=== PATIENT | male | born 1940 | race Caucasian/White ===

== ENCOUNTER 2018-11-05 11:56 | Observation (INO) ==
[2018-11-05] MEDS ORDERED: SALINE LOCK IV FLUID XX ONE ×2 (17:45→17:51)
[2018-11-05 19:35] LABS: BASO# 0.05 X1000 (0.0-0.2); BASO% 0.8 % (0.0-0.8); EOS# 0.04 X1000 (0.0-0.7); EOS% 0.7 % (0.0-10.0); HEMATOCRIT 39.8 % (42.0-52.0); HEMOGLOBIN 13.3 g/dL (14.0-18.0); LYMPH# 1.12 X1000 (1.2-3.4); LYMPH% 18.9 % (20.5-51.1); MCH 30.9 PG (27-31); MCHC 33.4 g/dL (33-37); MCV 92.3 FL (81-99); MONO% 11.8 % (1.7-9.3); MPV 13.2 FL (7.4-10.4); NEUT# 4.01 X1000 (1.4-6.5); NEUT% 67.8 % (42.2-75.2); PLT 73 X1000 (130-400); RBC 4.31 XMIL (4.7-6.1); RDW 15.4 % (11.5-14.5); WBC 5.92 X1000 (4.8-10.8)
[2018-11-05] MEDS: LASIX IV SCH (20:13)
[2018-11-05] MEDS: KLOR-CON PO SCH (20:13)
[2018-11-06 06:21] LABS: AGAP 12; BUN 7 mg/dL (8-22); CALCIUM 8.7 mg/dL (8.8-10.2); CHLORIDE 102 mmol/L (98-107); COSMO 284; CREATININE 0.8 mg/dL (0.7-1.2); ESTIMATED GFR > 60; GLUCOSE 79 mg/dL (70-104); MAGNESIUM 1.7 mg/dL (1.5-2.7); POTASSIUM 3.4 mmol/L (3.5-5.1); SODIUM 144 mmol/L (136-145); TCO2 30 mmol/L (25-35)
[2018-11-06] MEDS: KLOR-CON PO SCH ×2 (08:58→20:18)
[2018-11-06] MEDS: TOPROL XL PO SCH (08:58)
[2018-11-06] MEDS: LASIX IV SCH ×2 (08:58→20:18)
[2018-11-06] MEDS: ASPIRIN PO SCH (08:58)
[2018-11-06] MEDS ORDERED: ASPIRIN PO SCH (09:00)
[2018-11-06] MEDS ORDERED: TOPROL XL PO SCH (09:00)
[2018-11-06] MEDS ORDERED: KLOR-CON PO SCH (09:00)
--- NOTE | 2018-11-06 13:21 | EKG Report ---
Test Performed on : 11/06/2018 1:00:19 PM Test Reason : dyspnea Blood Pressure : / mmHG Vent. Rate : 067 BPM Atrial Rate : 067 BPM P-R Int : 166 ms QRS Dur : 080 ms QT Int : 424 ms P-R-T Axes : 050 013 215 degrees QTc Int : 448 ms Normal sinus rhythm. Left ventricular hypertrophy with repolarization abnormality Abnormal ECG When compared with ECG of 04-NOV-2018 20:46, (Unconfirmed) premature ventricular complexes. are no longer present T wave inversion now evident in Inferior leads Confirmed by Fawad BELTRAN, Jose Morrison ([id number]) on 11/07/2018 9:05:16 AM
[2018-11-06] MEDS: LOVENOX SUBQ SCH (15:20)
--- NOTE | 2018-11-06 18:24 | PROGRESS NOTE ---
DATE: 11/06/2018 SUBJECTIVE: Patient continues without shortness of breath on supplemental oxygen per nasal cannula. However, he does have a tendency for orthopnea persisting. There has been no chest pain. OBJECTIVE: Vital Signs: Blood pressure 110/60, heart rate 55, oxygen saturation 100% on nasal cannula oxygen at 2 L/minute. Neck: Jugular venous distention suggests central venous pressure around 8 to 10. Chest: Auscultation of the chest reveals bibasilar diminished breath sounds. Cardiac Exam: Reveals a regular rate and rhythm without appreciable murmur or gallop. Extremities: Demonstrate moderate pretibial edema. LABORATORY DATA: Includes a sodium 144, potassium 3.4, chloride 102, carbon dioxide 30, BUN 7, creatinine 0.8. TSH 4.95. Magnesium 1.7, glucose 79. IMPRESSION: 1. Acute on chronic systolic heart failure which is biventricular in nature. 2. Severe cardiomyopathy. 3. 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 RECOMMENDATIONS: 1. Continue diuresis with intravenous Lasix. 2. Continue metoprolol. 3. Consider low-dose ARB versus and Entresto as patient progressively improves. 4. Ultimately would hopefully favor pursuing cardiac catheterization and selective cord angiography for definitive evaluation of patient's cardiomyopathy. cc: Franck Rothman MD
[2018-11-07 06:47] LABS: CREATININE 1.2 mg/dL (0.7-1.2); POTASSIUM 3.9 mmol/L (3.5-5.1)
[2018-11-07 06:48] LABS: CALCIUM 8.5 mg/dL (8.8-10.2); MAGNESIUM 1.7 mg/dL (1.5-2.7)
--- NOTE | 2018-11-07 08:45 | Diag Imaging Result Doc PS360 ---
EXAM: CHEST-PORTABLE INDICATION: dyspnea TECHNIQUE: One view COMPARISON: 11/04/2018 FINDINGS: The left chest port is in stable position. Bibasilar pleural effusions are approximately stable as compared to the previous study. There is stable mild adjacent atelectasis and/or infiltrate. No new consolidation is identified. Cardiac silhouette is stable. IMPRESSION: Essentially stable chest. Electronically signed by Santosh Silver 11/07/2018 8:43 AM
[2018-11-07] MEDS: ASPIRIN PO SCH (09:08)
[2018-11-07] MEDS: TOPROL XL PO SCH (09:08)
[2018-11-07] MEDS: LASIX IV SCH ×2 (09:08→21:13)
[2018-11-07] MEDS: KLOR-CON PO SCH ×2 (09:08→21:13)
[2018-11-07] MEDS: LOVENOX SUBQ SCH (13:17)
[2018-11-08] MEDS: KLOR-CON PO SCH ×2 (09:57→20:28)
[2018-11-08] MEDS: TOPROL XL PO SCH ×2 (09:57→20:28)
[2018-11-08] MEDS: LASIX IV SCH (09:58)
[2018-11-08] MEDS: ASPIRIN PO SCH (09:58)
[2018-11-08] MEDS ORDERED: COZAAR PO ONE (11:50)
[2018-11-08] MEDS ORDERED: ZOFRAN IV PRN (12:05)
[2018-11-08] MEDS ORDERED: TYLENOL PO PRN (12:05)
[2018-11-08] MEDS: COZAAR PO SCH (12:50)
[2018-11-08] MEDS: LOVENOX SUBQ SCH (12:50)
[2018-11-08] MEDS: DUONEB (A & A) INH SCH ×2 (15:48→19:19)
[2018-11-08] MEDS: PULMICORT INH SCH (19:19)
[2018-11-09] MEDS: DUONEB (A & A) INH SCH ×6 (02:07→22:59)
[2018-11-09 06:21] LABS: BASO# 0.06 X1000 (0.0-0.2); BASO% 1.1 % (0.0-0.8); EOS# 0.13 X1000 (0.0-0.7); EOS% 2.4 % (0.0-10.0); HEMATOCRIT 39.3 % (42.0-52.0); HEMOGLOBIN 13.1 g/dL (14.0-18.0); LYMPH# 1.04 X1000 (1.2-3.4); LYMPH% 19.4 % (20.5-51.1); MCH 30.7 PG (27-31); MCHC 33.3 g/dL (33-37); MONO# 0.85 X1000 (0.11-0.59); MONO% 15.8 % (1.7-9.3); MPV 11.9 FL (7.4-10.4); NEUT# 3.29 X1000 (1.4-6.5); NEUT% 61.3 % (42.2-75.2); PLT 95 X1000 (130-400); RBC 4.27 XMIL (4.7-6.1); RDW 14.7 % (11.5-14.5); WBC 5.37 X1000 (4.8-10.8)
[2018-11-09 06:26] LABS: INR 1.01; PROTIME 13.4 Seconds (11.0-16.0)
[2018-11-09 06:27] LABS: PTT 32.4 Seconds (22.3-41.8)
[2018-11-09 06:43] LABS: AGAP 11; BUN 19 mg/dL (8-22); CALCIUM 8.1 mg/dL (8.8-10.2); CHLORIDE 104 mmol/L (98-107); COSMO 288; CREATININE 1.1 mg/dL (0.7-1.2); ESTIMATED GFR > 60; GLUCOSE 85 mg/dL (70-104); MAGNESIUM 1.8 mg/dL (1.5-2.7); POTASSIUM 3.6 mmol/L (3.5-5.1); SODIUM 144 mmol/L (136-145); TCO2 29 mmol/L (25-35)
--- NOTE | 2018-11-09 07:38 | EKG Report ---
Test Performed on : 11/09/2018 06:51:31 AM Test Reason : chest pain Blood Pressure : / mmHG Vent. Rate : 061 BPM Atrial Rate : 061 BPM P-R Int : 140 ms QRS Dur : 084 ms QT Int : 452 ms P-R-T Axes : 023 007 228 degrees QTc Int : 455 ms Normal sinus rhythm. Left ventricular hypertrophy with repolarization abnormality Abnormal ECG When compared with ECG of 06-NOV-2018 13:00, No significant change was found Confirmed by Fawad BELTRAN, Jose Morrison ([id number]) on 11/11/2018 9:36:00 PM
[2018-11-09 07:42] LABS: FREE T4 1.06 ng/dL (0.93-1.70); TSH 4.85 uIUmL (0.27-4.20)
[2018-11-09] MEDS: PULMICORT INH SCH ×2 (07:45→19:44)
[2018-11-09] MEDS: LASIX PO SCH (08:56)
[2018-11-09] MEDS: KLOR-CON PO SCH ×2 (08:56→21:23)
[2018-11-09] MEDS: TOPROL XL PO SCH ×2 (08:56→21:23)
[2018-11-09] MEDS: COZAAR PO SCH (08:56)
[2018-11-09] MEDS: PRILOSEC PO SCH (08:56)
[2018-11-09] MEDS: ASPIRIN PO SCH (08:56)
[2018-11-09] MEDS ORDERED: COZAAR PO SCH (09:00)
--- NOTE | 2018-11-09 10:25 | Diag Imaging Result Doc PS360 ---
EXAM: CHEST-2 VIEWS HISTORY: hypoxia TECHNIQUE: Chest two views COMPARISON: 11/07/2018 FINDINGS: Decreased basilar atelectasis. The heart is not enlarged. The vessels are not distended. There are no infiltrates. Tiny pleural effusions. No change in the left portacatheter. IMPRESSION: Interval improvement. Electronically signed by Salvador Robbins 11/09/2018 10:23 AM
--- NOTE | 2018-11-09 11:23 | EKG Report ---
Test Performed on : 11/09/2018 11:05:18 AM Test Reason : dyspnea Blood Pressure : / mmHG Vent. Rate : 063 BPM Atrial Rate : 063 BPM P-R Int : 174 ms QRS Dur : 092 ms QT Int : 430 ms P-R-T Axes : 045 000 184 degrees QTc Int : 440 ms Normal sinus rhythm. Left ventricular hypertrophy with repolarization abnormality Abnormal ECG When compared with ECG of 09-NOV-2018 06:51, (Unconfirmed) No significant change was found Confirmed by Fawad BELTRAN, Jose Morrison ([id number]) on 11/11/2018 9:45:50 PM
[2018-11-09] MEDS: LOVENOX SUBQ SCH (13:30)
--- NOTE | 2018-11-09 16:57 | PROGRESS NOTE ---
DATE: 11/09/2018 SUBJECTIVE: Patient is feeling good today. He understands he is going to undergo a left heart catheterization tomorrow. His breathing is comfortable. His family seems to think he looks and feels better. OBJECTIVE: Vital signs: Temperature 97.8 degrees, pulse 62, respirations 15, blood pressure 102/56. HEENT: Pupils are equal and round. Lungs: Clear in all lung infante. Cardiovascular: Regular rhythm and rate without murmur or S3. Abdomen: Soft, nondistended. No pedal edema. LABORATORY DATA: Review of lab from yesterday, white count 5,370, hematocrit 39, platelet count 95,000. Sodium 144, potassium 3.6, chloride 104, bicarb 29, BUN 19, creatinine 1.1, magnesium is 1.8. His B12 was 797. His folate was 485. T4 1.6, TSH 4.85. Chest x-ray from yesterday, interval improvement, decreased basilar atelectasis. Heart is not enlarged. Vessels were not distended. No sign of infiltrates. There are tiny pleural effusion. No change in left Port-A- Cath placement. ASSESSMENT AND PLAN: 1. Acute on chronic congestive heart failure and known to have severe cardiomyopathy. Some exacerbation with volume overload. Continue to diurese. Responding well, clinically better. 2. Mantle cell lymphoma. Treated with chemotherapy. 3. Hypertension, well controlled. Plan is for heart catheterization tomorrow to look at his coronaries. I do not see any change in orders. cc: Ozzie Cruz MD
[2018-11-10 05:56] LABS: HEMATOCRIT 38.1 % (42.0-52.0); HEMOGLOBIN 12.8 g/dL (14.0-18.0); MCH 31.4 PG (27-31); MCHC 33.6 g/dL (33-37); MCV 93.6 FL (81-99); MPV 12.3 FL (7.4-10.4); RBC 4.07 XMIL (4.7-6.1)
[2018-11-10 06:21] LABS: AGAP 13; BUN 19 mg/dL (8-22); CALCIUM 8.2 mg/dL (8.8-10.2); CHLORIDE 106 mmol/L (98-107); COSMO 288; ESTIMATED GFR > 60; GLUCOSE 84 mg/dL (70-104); SODIUM 144 mmol/L (136-145); TCO2 25 mmol/L (25-35)
[2018-11-10 07:18] LABS: INR 0.99; PROTIME 13.1 Seconds (11.0-16.0)
[2018-11-10] MEDS: COZAAR PO SCH (08:21)
[2018-11-10] MEDS: TOPROL XL PO SCH ×2 (08:21→20:39)
[2018-11-10] MEDS: KLOR-CON PO SCH ×2 (08:21→20:37)
[2018-11-10] MEDS: PRILOSEC PO SCH (08:21)
[2018-11-10] MEDS: ASPIRIN PO SCH (08:21)
[2018-11-10] MEDS: DUONEB (A & A) INH SCH ×5 (08:28→23:48)
[2018-11-10] MEDS: PULMICORT INH SCH ×2 (08:28→19:28)
[2018-11-10 08:43] LABS: URINE SOURCE CLEAN CATCH
[2018-11-10 09:09] LABS: BILIRUBIN URINE NEGATIVE (NEGATIVE); BLOOD URINE NEGATIVE (NEGATIVE); COLOR YELLOW; GLUCOSE URINE NEGATIVE (NEGATIVE); KETONE URINE NEGATIVE (NEGATIVE); LEUKOCYTES URINE NEGATIVE (NEGATIVE); NITRITE URINE NEGATIVE (NEGATIVE); PH URINE 7.5; PROTEIN URINE NEGATIVE (NEGATIVE); SP GRAVITY URINE 1.016; TURBIDITY URINE CLEAR (CLEAR); UROBILINOGEN URINE NORMAL (NORMAL)
[2018-11-10 09:10] LABS: UR EPITHELIAL CELLS <10 /HPF (<10); URINE BACTERIA NEGATIVE /HPF; URINE RBC <10 /HPF (<10); URINE WBC <10 /HPF (<10)
[2018-11-10] MEDS ORDERED: VERSED ONE (09:58)
[2018-11-10] MEDS ORDERED: MORPHINE ONE (09:58)
[2018-11-10] MEDS ORDERED: HEPARIN 1000 UNITS/NS 2,000 UNIT/1,000 ML IV.SOLN ONE (09:58)
[2018-11-10] MEDS ORDERED: XYLOCAINE 1% ONE (10:05)
[2018-11-10] MEDS ORDERED: ANESTHESIA PB SET 88 IN 5742 ONE (10:27)
[2018-11-10] MEDS ORDERED: NS 1,000 ML ONE (10:27)
[2018-11-10] MEDS ORDERED: CLAVE TWINSITE 32 IN 11959 ONE (10:27)
[2018-11-10] MEDS ORDERED: NS 1,000 ML IV SCH (13:00)
--- NOTE | 2018-11-10 13:33 | EKG Report ---
Test Performed on : 11/10/2018 12:49:41 PM Test Reason : post cath Blood Pressure : / mmHG Vent. Rate : 067 BPM Atrial Rate : 067 BPM P-R Int : 170 ms QRS Dur : 084 ms QT Int : 390 ms P-R-T Axes : 046 030 215 degrees QTc Int : 412 ms Normal sinus rhythm. T wave abnormality, consider inferior ischemia T wave abnormality, consider anterolateral ischemia Abnormal ECG When compared with ECG of 09-NOV-2018 11:05, (Unconfirmed) No significant change was found Confirmed by Fawad BELTRAN, Jose Morrison ([id number]) on 11/11/2018 10:13:11 PM
--- NOTE | 2018-11-10 16:07 | CARDIAC CATH REPORT ---
PROCEDURE NAME: - PROCEDURE PERFORMED: Left heart catheterization with selective coronary geography, left ventriculography. INDICATIONS: Further evaluation of severe cardiomyopathy with entry site right femoral artery. CATHETERS USED: 5-Serbian JL4, 3DRC, and angled pigtail. TECHNIQUE: After intravenous sedation with Versed and morphine, local anesthesia with lidocaine was applied over right femoral artery. Arterial access was established with placement of a 5- Serbian sheath in right femoral artery using modified Seldinger technique. Selective coronary angiography was performed followed by left heart catheterization left ventriculography. Upon completion of procedure, arterial sheath was removed from right femoral artery and hemostasis facilitated with manual pressure. The patient tolerated the procedure without apparent complications. FINDINGS: Hemodynamics: Aortic pressure 112/62 with a mean of 81, left ventricular pressure 104 over EDP of 20. COMMENTS ON HEMODYNAMICS: There is no significant gradient across aortic valve demonstrated on pullback from the left ventricle. ANGIOGRAPHY: 1. Left ventriculogram. The left ventricle is mild to moderately enlarged with severe global hypokinesis. Estimated ejection fraction approximately 20%. There is no significant mitral regurgitation. 2. Left main coronary. Left main coronary is free of significant coronary stenosis. 3. Left anterior descending coronary. Left anterior descending coronary demonstrates mild diffuse irregularities. Medium size 1st diagonal branch demonstrates a moderate (50%) eccentric ostial stenosis. 4. Left circumflex coronary. Left circumflex coronary and its branches demonstrate mild diffuse irregularities. The distal left circumflex coronary before posterolateral system demonstrates a mild (30%) focal plaque. 5. Right coronary. The dominant right coronary demonstrates mild diffuse irregularities. There is a mild (30%) focal plaque proximally. CONCLUSIONS: 1. Severe nonischemic cardiomyopathy with left ejection fraction 20%. 2. Nonobstructive coronary atherosclerosis. RECOMMENDATIONS: 1. Continue medical management of patient's severe nonischemic cardiomyopathy and nonobstructive coronary atherosclerosis. 2. Continue efforts at coronary risk factor modification. cc: MD Jaswant Gary MD
[2018-11-10] MEDS: LASIX PO SCH (16:11)
[2018-11-10] MEDS: LOVENOX SUBQ SCH (16:12)
--- NOTE | 2018-11-10 16:22 | PROGRESS NOTE ---
DATE: 11/10/2018 SUBJECTIVE: Today Mr. Weems refers to be doing fairly okay. Denies any new complaints. OBJECTIVELY: Vital: Blood pressure is 102/62, pulse of 62 respiration is 18, temperature 97.6 degrees. Patient is saturating 98%. General: Mr. Weems is a 78-year-old male. He is in bed, no distress. HEENT: Mucosa is pink and moist. Anicteric. Acyanotic. Neck: Supple. Chest: Clear. Some crepitations posteriorly. Cardiovascular: Regular rate and rhythm. There is a port on the left anterior chest wall. Abdomen: Soft. Extremities: No pedal edema. ECHO VASCULAR TECH: Patient is awake, alert, and oriented. LABORATORY DATA: WBC is 5.00, hemoglobin is 12.8, platelet count of 114,000. Chemistry is also reviewed completely and normal. CURRENT MEDICATIONS: Have all been reviewed. No changes. He is on metoprolol, Cozaar and Lasix. ASSESSMENT: 1. Acute on chronic congestive heart failure. 2. Fluid overload secondary to congestive heart failure. Patient continues to be on diuretic therapy. 3. History of severe cardiomyopathy of unclear etiology. The patient had a left heart catheterization today. We are pending the official report. We have been made to understand that there was not any critical stenosis or any obstructive coronary arthrosclerosis. It appears that this is nonischemic cardiomyopathy. Of note, the patient was treated for mantle cell lymphoma, so it is very possible could be related to the previous chemotherapy. 4. History of mantle cell lymphoma. Patient has been cleared. Cancer to be in remission. 5. Hypertension is controlled. PLAN: So in general I think Mr. Weems seems to be now euvolemic. He is not having any signs of congestion. He underwent a left heart catheterization today. We are pending the official report. We will continue with the ARBS, the beta christofer and diuretic therapy. I think we might potentially be able to discharge Mr. Weems tomorrow if it is okay with cardiology. cc: Jaswant Smith MD
[2018-11-11 07:19] LABS: CREATININE 0.9 mg/dL (0.7-1.2)
[2018-11-11] MEDS: DUONEB (A & A) INH SCH ×2 (07:38→10:56)
[2018-11-11] MEDS: PULMICORT INH SCH (07:38)
[2018-11-11 07:50] VITALS: BP 104/62
[2018-11-11] MEDS: COZAAR PO SCH (08:06)
[2018-11-11] MEDS: KLOR-CON PO SCH (08:06)
[2018-11-11] MEDS: PRILOSEC PO SCH (08:06)
[2018-11-11] MEDS: ASPIRIN PO SCH (08:07)
[2018-11-11] MEDS: TOPROL XL PO SCH (08:07)
[2018-11-11] MEDS: LASIX PO SCH (08:07)
--- NOTE | 2018-11-12 10:07 | DISCHARGE SUMMARY ---
ADMISSION DATE: 11/05/2018 DISCHARGE DATE: 11/11/2018 DISCHARGE DIAGNOSES: 1. Acute on chronic systolic heart failure, biventricular. 2. Severe nonischemic cardiomyopathy. 3. Mild coronary atherosclerosis. 4. History of mantle cell lymphoma. HOSPITAL COURSE: This 78-year-old white male with past history of mantle cell lymphoma was admitted for further management and diuresis for acute on chronic systolic heart failure. Echocardiography demonstrates severely depressed left ventricular systolic function. The patient was admitted to the pulmonary vascular and cardiology unit, and monitored on telemetry during his stay. He was diuresed with intravenous Lasix. Low-dose metoprolol was started and losartan was also added. The patient responded well, and diuresed with significant clinical improvement. On 11/10/2018, the patient underwent left heart catheterization with selective coronary geography which demonstrated severely depressed left ventricular systolic function with estimated ejection fraction approximately 20% in the setting of left ventricular enlargement. Mild coronary atherosclerosis was demonstrated. The patient was felt to have severe nonischemic cardiomyopathy and mild coronary atherosclerosis. Medical management was felt to be most appropriate. By 11/11/2018, the patient remained clinically stable and was markedly improved with respect to his congestive heart failure. He was subsequently discharged to home. DISPOSITION: Patient discharged to home. DISCHARGE MEDICATIONS: Please see discharge medication reconciliation form. FOLLOWUP: Patient be seen in clinic approximately 2 to 3 weeks after discharge in cardiology clinic. cc: MD Jaswant Gary MD
--- NOTE | 2018-11-13 05:34 | DISCHARGE SUMMARY ---
ADMISSION DATE: 11/05/2018 DISCHARGE DATE: 11/11/2018 DISPOSITION: Home. FOLLOW-UP: 1. Dr. Rao. 2. Dr. Rothman. CONSULTATIONS DURING ADMISSION: Cardiology was consulted. Patient was seen by Dr. Rothman. INVASIVE PROCEDURES DONE DURING THIS ADMISSION: Left heart catheterization was done by Dr. Rothman on 11/10/2018. IMAGING STUDIES OF SIGNIFICANCE: Chest x-ray on admission did show a stable chest. A repeat on the showed decreased bi-basal atelectasis with interval improvement. ADMISSION DIAGNOSES: 1. Acute on chronic systolic heart failure. 2. Severe cardiomyopathy. 3. History of mantle cell lymphoma treated with chemotherapy in the past. DIAGNOSES AT TIME OF DISCHARGE: 1. Acute on chronic congestive heart failure. 2. Fluid overload secondary to congestive heart failure. 3. Severe nonischemic cardiomyopathy presumably previous chemotherapy induced. 4. History of mantle cell lymphoma. Patient has been declared to be in remission. 5. Hypertension. 6. Normocytic anemia. DISCHARGE MEDICATIONS: 1. Furosemide 40 mg p.o. daily. 2. Omeprazole 20 mg p.o. daily. 3. Metoprolol succinate 25 mg b.i.d. 4. Aspirin 81 mg p.o. daily. 5. Cozaar 50 mg p.o. daily. CONSULTATION DURING ADMISSION: Cardiology was consulted. Patient was seen by Dr. Rothman. INVASIVE PROCEDURES DONE DURING ADMISSION: A left heart catheterization which showed severe nonischemic cardiomyopathy with ejection fraction of 20%, nonobstructive coronary artery disease. PRESENTING COMPLAINT: Shortness of breath. HISTORY OF PRESENTING COMPLAINT: Mr. Weems is a 78-year-old male who presented with congestive symptoms, and also some shortness of breath. He has a history of mantle cell lymphoma, which has been treated with chemo, and patient has been declared to be in remission. Upon presenting, he was evaluated and was found to be in congestive heart failure. He was subsequently admitted for further medical care. A consult was also placed for Cardiology. Patient was seen by Dr. Rothman. During the hospital course, the decision was made to do a left heart cath which was successfully done by Dr. Rothman. Please refer to the details of the report in the chart. Briefly, Mr. Weems was found to have a severe nonischemic cardiomyopathy. He was subsequently started on arbs, beta christofer, and diuretic therapy. He is currently euvolemic. He feels well. We think he is stable for discharge. At the time of the discharge, vitals show blood pressure was 104/62, pulse of 70, respirations 17, and temperature 97.6 degrees. The patient was saturating 100%. He has been advised to be compliant with his current medications, and also to have less than 2 g salt in his diet. TIME SPENT: The time spent for discharge is 37 minutes. cc: MD Franck Freedman MD Dr. Donham
== END 2018-11-11 12:41 | disposition home or self-care (01) ==
LOC: INTOOBSV 11:56 → DIRADM 11:56 → 2N 17:48
PROVIDERS: ADMIT Internal Medicine; ATTEND Internal Medicine Cardiovascular Disease